=== PATIENT | female | born 1930 | race Caucasian/White ===

== ENCOUNTER 2018-06-18 15:25 | Inpatient (IN) | payer MEDICARE, OTHER ==
[~2018-06-18] VITALS: Ht 152.4 cm; Wt 70.8 kg
[2018-06-18 20:00] VITALS: BP 150/50
[2018-06-18] MEDS ORDERED: MAGNESIUM HYDROXIDE 30 ML UDC PO PRN (20:00)
[2018-06-18] MEDS ORDERED: ACETAMINOPHEN 325 MG TABLET PO PRN (20:00)
[2018-06-18] MEDS ORDERED: MAG HYDROX/AL HYDROX/SIMETH 30 ML UDC PO PRN (20:00)
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
[2018-06-18] MEDS ORDERED: LISI-607 PO (21:01)
[2018-06-18] MEDS ORDERED: ROSU20TA PO ×2 (21:01)
[2018-06-18] MEDS ORDERED: METF500T6 PO (21:01)
[2018-06-18] MEDS ORDERED: CLOP75TA15 PO (21:01)
[2018-06-18] MEDS ORDERED: ASPI-1152 PO (21:01)
[2018-06-18] MEDS ORDERED: METO50TA16 PO (21:01)
[2018-06-18] MEDS ORDERED: ISOS30TA6 PO (21:01)
[2018-06-18] MEDS ORDERED: ROSUVASTATIN CALCIUM 25 MG PO SCH (22:00)
[2018-06-18] MEDS: LORAZEPAM 0.5 MG TABLET PO PRN (23:34)
[2018-06-19 00:35] VITALS: BP 150/50
[2018-06-19 06:59] LABS: BASOPHILS % (AUTO) 0.6 % (0.0-2.0); EOSINOPHILS % (AUTO) 1.3 % (0.0-6.0); HEMATOCRIT 40 % (33-45); HEMOGLOBIN 13.3 g/dL (11.5-14.8); LYMPHOCYTES # (AUTO) 1.4 /CMM (0.8-4.8); LYMPHOCYTES % (AUTO) 26.6 % (20.0-44.0); MEAN CORPUSCULAR HEMOGLOBIN 30 PG (26.0-33.0); MEAN CORPUSCULAR HGB CONC 33 g/dl (31.0-36.0); MEAN CORPUSCULAR VOLUME 89 fL (82-100); MONOCYTES # (AUTO) 0.5 /CMM (0.1-1.30); MONOCYTES % (AUTO) 8.8 % (2.0-12.0); NEUTROPHILS # (AUTO) 3.4 /CMM (1.8-8.9); NEUTROPHILS % (AUTO) 62.7 % (43.0-81.0); PLATELET COUNT (AUTO) 234 /CMM (150-450); RDW COEFFICIENT OF VARIATION 14.2 (11.5-15.0); WHITE BLOOD COUNT (AUTO) 5.4 K/uL (4.3-11.0)
[2018-06-19 07:16] LABS: ALANINE AMINOTRANSFERASE 25 U/L (12-78); ALBUMIN 3.1 g/dL (3.4-5.0); ALKALINE PHOSPHATASE 103 U/L (46-116); ASPARTATE AMINOTRANSFERASE 19 U/L (15-37); BILIRUBIN,TOTAL 0.6 mg/dL (0.2-1.0); CALCIUM, SERUM 8.1 mg/dL (8.5-10.1); CARBON DIOXIDE 25 mmol/L (21-32); CHLORIDE 101 mmol/L (98-107); CREATININE 0.8 mg/dL (0.6-1.3); GLUCOSE 118 mg/dL (74-106); POTASSIUM 4.4 mmol/L (3.5-5.1); SODIUM SERUM 133 mmol/L (136-145); TOTAL PROTEIN, SERUM 6.5 g/dL (6.4-8.2); UREA NITROGEN, BLOOD 15 mg/dL (7-18)
[2018-06-19 08:00] VITALS: BP_SYST 159; BP_SYST 179; BP_DIAS 65
[2018-06-19 08:09] LABS: CHOLESTEROL 125 mg/dL (<200); HDL CHOLESTEROL 49 mg/dL (40-60); LDL 63 mg/dL (0-99); TRIGLYCERIDES 107 mg/dL (30-150)
[2018-06-19] MEDS ORDERED: Medication Not On Formulary EA (Rosuvastatin Calcium (Crestor) 20 MG) PO SCH (09:00)
[2018-06-19] MEDS: CLOPIDOGREL BISULFATE 75 MG TABLET PO SCH (09:21)
[2018-06-19] MEDS: LISINOPRIL (5MG) 5 MG TABLET PO SCH (09:22)
[2018-06-19] MEDS: METOPROLOL TARTRATE 50 MG TABLET PO SCH ×2 (09:22→16:41)
[2018-06-19] MEDS: ISOSORBIDE MONONITRATE (30MG) 30 MG TAB.SR.24H PO SCH (09:23)
[2018-06-19] MEDS: METFORMIN 500 MG TABLET PO SCH (09:23)
[2018-06-19] MEDS: ASPIRIN EC 81 MG TABLET.DR PO SCH (09:23)
--- NOTE | 2018-06-19 14:12 | NUR ---
INITIAL DISCHARGE PLAN: Per pts daughter Dianelys [phone], pt is able to and wishes for pt to return home to [facility] [address] [facility] [address]. However, pts daughter Rhonda [phone] states pt cannot return home and needs SNF placement as pt needs help and is concerned for her safety is she returns home to live by herself. SW will help form a safe and proper discharge in collaboration with MD and family.
--- NOTE | 2018-06-19 14:26 | NUR ---
Pts daughter Dianelys [phone] contacted ALE to inform her that her and sisters all have different opinions regarding pts discharge plan. Dianelys informed ALE that she has been solely responsible for pts care for the past 2 years as she is her SS caregiver and her siblings have not been involved with pts care. ALE will help form a proper discharge plan in collaboration with .
[2018-06-19 16:00] VITALS: BP 153/83
[2018-06-19 19:30] VITALS: BP 157/60
[2018-06-19] MEDS: TEMAZEPAM 15 MG CAPSULE PO PRN (22:37)
[2018-06-19] MEDS: risperiDONE 1 MG TABLET PO SCH (22:37)
[2018-06-19] MEDS: ATORVASTATIN 10 MG TABLET PO SCH (22:37)
[2018-06-20 08:00] VITALS: BP 183/77
[2018-06-20] MEDS: METFORMIN 500 MG TABLET PO SCH (09:15)
[2018-06-20] MEDS: CLOPIDOGREL BISULFATE 75 MG TABLET PO SCH (09:15)
[2018-06-20] MEDS: ASPIRIN EC 81 MG TABLET.DR PO SCH (09:15)
[2018-06-20] MEDS: risperiDONE 1 MG TABLET PO SCH ×2 (09:16→16:24)
[2018-06-20] MEDS: ISOSORBIDE MONONITRATE (30MG) 30 MG TAB.SR.24H PO SCH (09:16)
[2018-06-20] MEDS: LISINOPRIL (5MG) 5 MG TABLET PO SCH (09:16)
[2018-06-20] MEDS: METOPROLOL TARTRATE 50 MG TABLET PO SCH ×2 (09:20→16:25)
[2018-06-20 16:18] VITALS: BP 179/91
[2018-06-20] MEDS: LORAZEPAM 0.5 MG TABLET PO PRN (16:24)
[2018-06-20 19:30] VITALS: BP 110/58
[2018-06-20] MEDS: TEMAZEPAM 15 MG CAPSULE PO PRN (21:48)
[2018-06-20] MEDS: ATORVASTATIN 10 MG TABLET PO SCH (21:48)
[2018-06-21 08:00] VITALS: BP 170/68
[2018-06-21] MEDS: ASPIRIN EC 81 MG TABLET.DR PO SCH (08:25)
[2018-06-21] MEDS: risperiDONE 1 MG TABLET PO SCH ×2 (08:26→16:12)
[2018-06-21] MEDS: ISOSORBIDE MONONITRATE (30MG) 30 MG TAB.SR.24H PO SCH (08:26)
[2018-06-21] MEDS: CLOPIDOGREL BISULFATE 75 MG TABLET PO SCH (08:26)
[2018-06-21] MEDS: METOPROLOL TARTRATE 50 MG TABLET PO SCH ×2 (08:27→16:13)
[2018-06-21] MEDS: LISINOPRIL (5MG) 5 MG TABLET PO SCH (08:27)
[2018-06-21] MEDS: METFORMIN 500 MG TABLET PO SCH (08:31)
[2018-06-21 16:08] VITALS: BP 127/55
[2018-06-21 19:46] VITALS: BP 123/65
[2018-06-21] MEDS: ATORVASTATIN 10 MG TABLET PO SCH (21:16)
[2018-06-21] MEDS: TEMAZEPAM 15 MG CAPSULE PO PRN (22:44)
[2018-06-22 08:00] VITALS: BP 129/77
[2018-06-22] MEDS: ASPIRIN EC 81 MG TABLET.DR PO SCH (08:20)
[2018-06-22] MEDS: CLOPIDOGREL BISULFATE 75 MG TABLET PO SCH (08:21)
[2018-06-22] MEDS: METFORMIN 500 MG TABLET PO SCH (08:21)
[2018-06-22] MEDS: risperiDONE 1 MG TABLET PO SCH ×2 (08:21→17:18)
[2018-06-22] MEDS: METOPROLOL TARTRATE 50 MG TABLET PO SCH ×2 (08:25→17:19)
[2018-06-22] MEDS: ISOSORBIDE MONONITRATE (30MG) 30 MG TAB.SR.24H PO SCH (08:25)
[2018-06-22] MEDS: LISINOPRIL (5MG) 5 MG TABLET PO SCH (08:25)
--- NOTE | 2018-06-22 14:07 | NUR ---
Pts daughter Dianelys [phone] contacted ALE to ask how pt is doing, ALE provided pts daughter with the nurses station phone number so she could call and ask for pt updates. Addendum: 06/22/18 at 1427 by JESICA AGUILERA ALE also asked pts daughter who was pts primary vision care associate due to several calls from pts other children requesting pt information and providing SW with their own discharge plans. ALE informed pts daughter Dianelys that she recommended family coming together to discuss a safe and proper discharge plan for pt. ALE also informed pts daughter that she would discuss discharge plan with her directly as she is pts primary caregiver. Pts daughter agreed and stated that her sisters have not been involved with pts care for the past 2 years. ALE also provided pts daughter with MD contact information.
--- NOTE | 2018-06-22 14:20 | NUR ---
Pts daughter Sera [phone] left SW a voicemail for call back, SW returned call and received an international dial tone; pts daughter was not available.
--- NOTE | 2018-06-22 14:20 | NUR ---
pts daughter Rhonda [phone] left SW a voicemail stating pt cannot return home and needs SNF placement
[2018-06-22 16:00] VITALS: BP_SYST 122; BP_SYST 153; BP_DIAS 56; BP_DIAS 64
--- NOTE | 2018-06-22 16:02 | NUR ---
Pts daughter Rhonda [phone]/ [phone] contacted SW and stated that she would be responsible for pts care and would be involved with pts discharge planning. Pts daughter informed SW that she has spoken to her siblings regarding pts discharge and have all agreed that she would be responsible and would be the main contact for pts discharge planning. Pts daughter asked SW to discharge pt to another psychiatric hospital and SW informed her that SW could not discharge pt to another psych unit. Pts daughter understood and asked SW to help discharge pt a long term. SW will help form a safe and proper discharge.
--- NOTE | 2018-06-22 18:18 | NUR ---
GPS RN NOTE : NOTED PT LEFT HAND FOURTH FINGER NAIL COMING OUT,COVERED WITH BAND AID,WILL NOTIFIED MD.
--- NOTE | 2018-06-22 19:30 | NUR ---
GPS RN NOTE, RECEIVED PATIENT AWAKE AND IN BED, NO S/S OR COMPLAINTS OF PAIN AT THIS TIME. PATIENT IS DISPLAYING NO S/S OF APPARENT DISTRESS AT THIS TIME. PATIENT BREATHING IS UNLABORED WITH EQUAL RISE AND FALL CHEST. PATIENT IS ALERT AND ORIENTED X 2 ON ROOM AIR WITH A SPO2 98% . PATIENT IS FAROESE SPEAKING. PATIENT IS SUSPICIOUS, PARANOID, DISORGANIZED, COOPERATIVE, ANXIOUS AT TIMES, AND NEEDS REDIRECTION. PATIENT DENIES SUICIDE IDEATIONS AND HOMICIDAL IDEATIONS AT THIS TIME. PATIENT EDUCATED ON THE USE OF THE CALL BEL. PATIENT BED SIDE RAILS UP X 2 FOR SAFETY, BED IS LOCKED AND LOW, WILL CONTINUE TO MONITOR AND MAINTAIN SAFETY WITH THE HELP OF SAFE.
[2018-06-22 19:54] VITALS: BP 126/61
[2018-06-22] MEDS ORDERED: risperiDONE 1 MG TABLET PO SCH (21:00)
[2018-06-22] MEDS: ATORVASTATIN 10 MG TABLET PO SCH (21:40)
[2018-06-22] MEDS ORDERED: risperiDONE 1 MG TABLET PO ONE (22:00)
[2018-06-23 08:00] VITALS: BP 153/66
--- NOTE | 2018-06-23 08:22 | NUR ---
Pts daughter Rhonda [phone] contacted social services assistant to inquire about SNF coverage. SW returned call and left voicemail explaining to pts daughter that Medicare covers short term SNF placement and once pt is placed at SNF she can ask SNF social services assistant how many days pt will be covered by Medicare.
[2018-06-23] MEDS: METFORMIN 500 MG TABLET PO SCH (08:42)
[2018-06-23] MEDS: risperiDONE 1 MG TABLET PO SCH ×2 (08:42→17:35)
[2018-06-23] MEDS: ASPIRIN EC 81 MG TABLET.DR PO SCH (08:43)
[2018-06-23] MEDS: ISOSORBIDE MONONITRATE (30MG) 30 MG TAB.SR.24H PO SCH (08:43)
[2018-06-23] MEDS: CLOPIDOGREL BISULFATE 75 MG TABLET PO SCH (08:43)
[2018-06-23] MEDS: LISINOPRIL (5MG) 5 MG TABLET PO SCH (08:43)
[2018-06-23] MEDS: METOPROLOL TARTRATE 50 MG TABLET PO SCH ×2 (08:44→17:00)
[2018-06-23 10:41] LABS: APPEARANCE,URINE CLEAR (CLEAR); BILIRUBIN,URINE NEGATIVE (NEGATIVE); BLOOD, URINE 1+ Ery/uL (NEGATIVE); COLOR,URINE YELLOW (YELLOW); KETONES,URINE NEGATIVE (NEGATIVE); LEUKOCYTE ESTERASE ,URINE TRACE (NEGATIVE); NITRITE, URINE NEGATIVE (NEGATIVE); PH,URINE 6.5 (5.0-8.0); PROTEIN,URINE NEGATIVE (NEGATIVE); UGLUCOSE NEGATIVE (NEGATIVE)
--- NOTE | 2018-06-23 10:45 | NUR ---
ALE faxed SNF referral to Stacie billing coordinator at [facility] [address] [place] [address] for review.
--- NOTE | 2018-06-23 11:27 | NUR ---
[facility] Address: [address] [place] [address] fax: [phone] for review.
[2018-06-23 11:51] LABS: BACTERIA,URINE Rare /HPF (None Seen); SQUAMOUS EPITHELIAL CELL,UR Moderate /HPF (None Seen)
--- NOTE | 2018-06-23 15:55 | NUR ---
Per 's request, ALE faxed SNF referral to Britney ALDRIDGE at [facility] Address: [address], [place] [address] fax : [phone] fore review.
--- NOTE | 2018-06-23 15:58 | NUR ---
SW received phone call from CJ technology coordinator at [facility] Address: [address] [place] [address] stating pt has been accepted to their facility.
[2018-06-23 16:00] VITALS: BP 151/51
[2018-06-23 20:32] VITALS: BP 162/65
[2018-06-23] MEDS: ATORVASTATIN 10 MG TABLET PO SCH (21:03)
[2018-06-23] MEDS: hydrALAZINE HCL 10 MG TABLET PO PRN (21:05)
[2018-06-23] MEDS: TEMAZEPAM 15 MG CAPSULE PO PRN (22:01)
[2018-06-24 08:00] VITALS: BP 189/77
[2018-06-24] MEDS: CLOPIDOGREL BISULFATE 75 MG TABLET PO SCH (08:31)
[2018-06-24] MEDS: LISINOPRIL (5MG) 5 MG TABLET PO SCH (08:35)
[2018-06-24] MEDS: ISOSORBIDE MONONITRATE (30MG) 30 MG TAB.SR.24H PO SCH (08:36)
[2018-06-24] MEDS: METOPROLOL TARTRATE 50 MG TABLET PO SCH ×2 (08:36→17:10)
[2018-06-24] MEDS: risperiDONE 1 MG TABLET PO SCH ×2 (08:36→17:10)
[2018-06-24] MEDS: METFORMIN 500 MG TABLET PO SCH (08:37)
[2018-06-24] MEDS: ASPIRIN EC 81 MG TABLET.DR PO SCH (08:37)
[2018-06-24] MEDS: hydrALAZINE HCL 10 MG TABLET PO PRN (08:37)
--- NOTE | 2018-06-24 09:50 | NUR ---
Britney ALDRIDGE at [facility] Address: [address] [place] [address] contacted SW to inform her pt was accepted to their facility.
[2018-06-24 16:00] VITALS: BP 118/57
--- NOTE | 2018-06-24 19:30 | NUR ---
GPS RN NOTE, RECEIVED PATIENT AWAKE AND IN BED, NO S/S OR COMPLAINTS OF PAIN AT THIS TIME. PATIENT IS DISPLAYING NO S/S OF APPARENT DISTRESS AT THIS TIME. PATIENT BREATHING IS UNLABORED WITH EQUAL RISE AND FALL CHEST. PATIENT IS ALERT AND ORIENTED X 2 ON ROOM AIR WITH A SPO2 97% . PATIENT IS GEORGIAN SPEAKING. PATIENT IS SUSPICIOUS, PARANOID, DISORGANIZED, COOPERATIVE, ANXIOUS AT TIMES, AND NEEDS REDIRECTION. PATIENT DENIES SUICIDE IDEATIONS AND HOMICIDAL IDEATIONS AT THIS TIME. PATIENT EDUCATED ON THE USE OF THE CALL BEL. PATIENT BED SIDE RAILS UP X 2 FOR SAFETY, BED IS LOCKED AND LOW, WILL CONTINUE TO MONITOR AND MAINTAIN SAFETY WITH THE HELP OF SAFE.
[2018-06-24 21:26] VITALS: BP 155/67
[2018-06-24] MEDS: ATORVASTATIN 10 MG TABLET PO SCH (21:26)
--- NOTE | 2018-06-25 08:30 | NUR ---
Pt in room awake, alert, oriented verbally responsive Barbadian speaker only, ambulatory in room in unit with good steady gait, complient with meds, no distress.
[2018-06-25] MEDS: METOPROLOL TARTRATE 50 MG TABLET PO SCH ×2 (09:00→17:00)
[2018-06-25] MEDS: risperiDONE 1 MG TABLET PO SCH ×3 (09:14→21:33)
[2018-06-25] MEDS: LISINOPRIL (5MG) 5 MG TABLET PO SCH (09:14)
[2018-06-25] MEDS: CLOPIDOGREL BISULFATE 75 MG TABLET PO SCH (09:15)
[2018-06-25] MEDS: METFORMIN 500 MG TABLET PO SCH (09:15)
[2018-06-25] MEDS: ASPIRIN EC 81 MG TABLET.DR PO SCH (09:15)
[2018-06-25] MEDS: ISOSORBIDE MONONITRATE (30MG) 30 MG TAB.SR.24H PO SCH (09:16)
[2018-06-25 09:29] VITALS: BP 141/71
--- NOTE | 2018-06-25 12:43 | NUR ---
Pt was seen by Dr Francisco, aware of albs, pt requires to drink more fluids, no distress, also pt is complient with meds no distress.
[2018-06-25 16:00] VITALS: BP 164/69
--- NOTE | 2018-06-25 16:05 | NUR ---
Pts daughter Rhonda [phone] contacted group social worker to inquire about SNF placement and discharge/ SW informed pts daughter that pt was accepted to [facility] and as of this present day there was no discharge order for pt. SW informed pts daughter that as soon as she received discharge order she will contact pts daughter.
[2018-06-25] MEDS: hydrALAZINE HCL 10 MG TABLET PO PRN (18:20)
[2018-06-25 20:00] VITALS: BP 138/70
[2018-06-25] MEDS: ATORVASTATIN 10 MG TABLET PO SCH (21:32)
[2018-06-26 08:00] VITALS: BP 163/73
[2018-06-26] MEDS: METFORMIN 500 MG TABLET PO SCH (08:11)
[2018-06-26] MEDS: ASPIRIN EC 81 MG TABLET.DR PO SCH (08:11)
[2018-06-26] MEDS: risperiDONE 1 MG TABLET PO SCH ×2 (08:11→16:59)
[2018-06-26] MEDS: LISINOPRIL (5MG) 5 MG TABLET PO SCH (08:12)
[2018-06-26] MEDS: METOPROLOL TARTRATE 50 MG TABLET PO SCH ×2 (08:12→16:59)
[2018-06-26] MEDS: CLOPIDOGREL BISULFATE 75 MG TABLET PO SCH (08:13)
[2018-06-26] MEDS: ISOSORBIDE MONONITRATE (30MG) 30 MG TAB.SR.24H PO SCH (08:13)
--- NOTE | 2018-06-26 09:53 | NUR ---
Pts daughter Dianelys [phone] contacted social science instructor to inquire about SNF placement and discharge/ SW informed pts daughter that pt was accepted to [facility] and as of this present day there was no discharge order for pt. SW informed pts daughter that as soon as she received discharge order she will contact pts daughter. Pts daughter also asked SW if SW could give her pts credit card to pay pts rent and bills. SW informed pts daughter that giving her pts credit card is against hospital policy and pts belongings would be given to pt at the time of discharge. Pts daughter understood.
[2018-06-26 16:00] VITALS: BP 108/59
[2018-06-26 20:00] VITALS: BP 118/53
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
[2018-06-26 20:20] VITALS: BP 118/53
[2018-06-26] MEDS: TEMAZEPAM 15 MG CAPSULE PO PRN (21:00)
[2018-06-26] MEDS: ATORVASTATIN 10 MG TABLET PO SCH (21:00)
--- NOTE | 2018-06-26 21:01 | NUR ---
PRN RESTORIL: "MEDISINA PARA DORMIR", PT VERBALIZED, PRN RESTORIL ADMINISTERED ORDERED
[2018-06-27 08:00] VITALS: BP 152/84
[2018-06-27] MEDS: risperiDONE 1 MG TABLET PO SCH ×2 (08:52→16:09)
[2018-06-27] MEDS: ASPIRIN EC 81 MG TABLET.DR PO SCH (08:52)
[2018-06-27] MEDS: ISOSORBIDE MONONITRATE (30MG) 30 MG TAB.SR.24H PO SCH (08:53)
[2018-06-27] MEDS: CLOPIDOGREL BISULFATE 75 MG TABLET PO SCH (08:53)
[2018-06-27] MEDS: METOPROLOL TARTRATE 50 MG TABLET PO SCH ×2 (08:54→16:09)
[2018-06-27] MEDS: LISINOPRIL (5MG) 5 MG TABLET PO SCH (08:54)
[2018-06-27] MEDS: METFORMIN 500 MG TABLET PO SCH (08:54)
[2018-06-27 16:00] VITALS: BP 152/74
--- NOTE | 2018-06-27 19:25 | NUR ---
GPS RN OPENING NOTE Patient was seen sitting at the edge of her bed AAOx2, calm & cooperative, and no signs of acute distress. Appearance is unkempt. Patient was also seen ambulating in room and wiggins with slow but steady gait. Patient states that she has no immediate needs or concerns at this time. Will continue to monitor.
[2018-06-27 20:00] VITALS: BP 151/68
[2018-06-27] MEDS: ATORVASTATIN 10 MG TABLET PO SCH (21:16)
[2018-06-27] MEDS: TEMAZEPAM 15 MG CAPSULE PO PRN (21:16)
--- NOTE | 2018-06-27 21:16 | NUR ---
GPS RN NOTE - PRN Meds Patient requested pain medication for a headache and also requested a sleep aid. 650mg of PO Tylenol and 15mg PO temazepam were administered per prn orders. Will continue to monitor.
[2018-06-28 08:00] VITALS: BP 160/70
[2018-06-28] MEDS: CLOPIDOGREL BISULFATE 75 MG TABLET PO SCH (08:16)
[2018-06-28] MEDS: METFORMIN 500 MG TABLET PO SCH (08:16)
[2018-06-28] MEDS: ASPIRIN EC 81 MG TABLET.DR PO SCH (08:16)
[2018-06-28] MEDS: risperiDONE 1 MG TABLET PO SCH ×2 (08:17→16:41)
[2018-06-28] MEDS: ISOSORBIDE MONONITRATE (30MG) 30 MG TAB.SR.24H PO SCH (08:17)
[2018-06-28] MEDS: LISINOPRIL (5MG) 5 MG TABLET PO SCH (08:18)
[2018-06-28] MEDS: METOPROLOL TARTRATE 50 MG TABLET PO SCH ×2 (08:18→16:41)
[2018-06-28 16:15] VITALS: BP 145/69
--- NOTE | 2018-06-28 19:30 | NUR ---
RN NOTES RECEIVED PATIENT IN BED AWAKE, AO X 2, ABLE TO MAKE NEEDS KNOWN. NO ACUTE DISTRESS NOTED. DENIES ANY PAIN AT THIS TIME. DENIERS SI/HI AT THIT TIME. SAFETY REMINDERS GIVEN. ON LOW BED WITH BILATERAL UPPER SIDE RAILS UP. CALL DONOVAN WITHIN EASY REACH. WILL CONTINUE TO MONITOR.
[2018-06-28 20:00] VITALS: BP 140/61
[2018-06-28 20:10] VITALS: BP 140/61
[2018-06-28] MEDS: ATORVASTATIN 10 MG TABLET PO SCH (21:16)
[2018-06-28] MEDS: TEMAZEPAM 15 MG CAPSULE PO PRN (21:17)
--- NOTE | 2018-06-29 06:32 | NUR ---
RN NOTES PATIENT ASLEEP, EASILY AROUSABLE. RESPIRATIONS EVEN. NO SIGNS OF PAIN NOTED. DUE MEDS GIVEN WITH NO ASE NOTED. NEEDS ATTENDED. KEPT CLEAN, DRY, AND COMFORTABLE. SAFETY PRECAUTIONS AND COMFORT MEASURES IN PLACE. WILL GIVE REPORT TO DAY SHIFT FOR CONTINUITY OF CARE.
[2018-06-29 08:00] VITALS: BP 131/69
[2018-06-29] MEDS: CLOPIDOGREL BISULFATE 75 MG TABLET PO SCH (08:23)
[2018-06-29] MEDS: ISOSORBIDE MONONITRATE (30MG) 30 MG TAB.SR.24H PO SCH (08:23)
[2018-06-29] MEDS: LISINOPRIL (5MG) 5 MG TABLET PO SCH (08:23)
[2018-06-29] MEDS: METFORMIN 500 MG TABLET PO SCH (08:23)
[2018-06-29] MEDS: risperiDONE 1 MG TABLET PO SCH ×2 (08:24→16:51)
[2018-06-29] MEDS: METOPROLOL TARTRATE 50 MG TABLET PO SCH ×2 (08:24→16:50)
[2018-06-29] MEDS: ASPIRIN EC 81 MG TABLET.DR PO SCH (08:24)
[2018-06-29 16:16] VITALS: BP 169/67
[2018-06-29] MEDS: hydrALAZINE HCL 10 MG TABLET PO PRN (19:35)
[2018-06-29 20:12] VITALS: BP 176/101
[2018-06-29] MEDS: ATORVASTATIN 10 MG TABLET PO SCH (21:05)
[2018-06-29] MEDS: TEMAZEPAM 15 MG CAPSULE PO PRN (21:38)
[2018-06-30 08:21] VITALS: BP 150/67
[2018-06-30] MEDS: risperiDONE 1 MG TABLET PO SCH (08:37)
[2018-06-30] MEDS: METFORMIN 500 MG TABLET PO SCH (08:37)
[2018-06-30] MEDS: ASPIRIN EC 81 MG TABLET.DR PO SCH (08:37)
[2018-06-30] MEDS: LISINOPRIL (5MG) 5 MG TABLET PO SCH (08:37)
[2018-06-30] MEDS: CLOPIDOGREL BISULFATE 75 MG TABLET PO SCH (08:37)
[2018-06-30] MEDS: METOPROLOL TARTRATE 50 MG TABLET PO SCH (08:37)
[2018-06-30 08:38] VITALS: BP 150/67
[2018-06-30] MEDS: ISOSORBIDE MONONITRATE (30MG) 30 MG TAB.SR.24H PO SCH (08:38)
--- NOTE | 2018-06-30 14:00 | NUR ---
GPS/RN PATIENT CLEARED FOR DISCHARGE TO [facility] BY DR MATIAS AND DR CAMARILLO. MEDICATIONS RECONCILED BY BOTH DR'S. EXIT CARE, AFTER CARE PLAN AND MEDICATIONS EXPLAINED TO PATIENT, VERBALIZED UNDERSTANDING. BELONGINGS AND VALUABLES RETURNED, D/C PAPERWORK SIGNED BY PATIENT. PATIENT DENIES SI/HI/AH UPON DISCHARGE, PSYCHIATRIC TREATMENT PLANS MET. REPORT CALLED TO FACILITY SPOKE WITH ODELL. LEFT UNIT CALM, COOPERATIVE NO DISTRESS WITH AMBULANCE TRANSPORT AT SIDE.
--- NOTE | 2018-06-30 15:28 | NUR ---
DISCHARGE NOTE: Pt was discharged at 3:00pm via [facility] ambulance trip#[id number] to [facility] ([facility]) Address: [address] [place] [address] . Pts Daughter Rhonda [phone] and Pts daughter Dianelys [phone] have been notified and agree with discharge plan. Pts mood was calm with congruent affect. Pt denied suicidal/homicidal ideations and denied visual/auditory hallucinations. Patient was referred to [facility]: [address] [place] [address] and will report for an Intake on Sunday July 01, 2018 before 5:00pm. Additional resources included [facility] [address] [place] [address] and [facility] [address] [place] [address] . Pt will be under the medical care of Rotor Casting Machine Setup Operator: Dr. Micah Jennings [address] [facility], [place] [phone] and Psychiatrist: Dr. Boo Orta [address] [place] [address] [phone]. The multidisciplinary exitcare form was done, printed, signed, and given to the patient.
== END 2018-06-30 17:33 | DRG 885 ==
LOC: GPS 19:31
PROVIDERS: ADMIT Psychiatry & Neurology Psychiatry; ATTEND Psychiatry & Neurology Psychiatry
DX: F29 Unspecified psychosis not due to a substance or known physiological condition (principal); E11.65 Type 2 diabetes mellitus with hyperglycemia; F41.9 Anxiety disorder, unspecified; I10 Essential (primary) hypertension; I25.10 Atherosclerotic heart disease of native coronary artery without angina pectoris; Z73.6 Limitation of activities due to disability; E78.5 Hyperlipidemia, unspecified; F03.90 Unspecified dementia, unspecified severity, without behavioral disturbance, psychotic disturbance, mood disturbance, and anxiety; F32.9 Major depressive disorder, single episode, unspecified
CPT/HCPCS: 36415; 80053-TC; 80061-TC; 81000-TC; 82962-TC; 85025-TC; 87081-TC